=== PATIENT | male | born 1965 | race Hispanic/Latino ===

== ENCOUNTER 2022-09-11 01:09 | Emergency (ER) | payer OTHER ==
[~2022-09-11] VITALS: Ht 170.2 cm; Wt 74.8 kg
[2022-09-11] MEDS ORDERED: KETOROLAC TROMETHAMINE 60 MG/2 ML VIAL IM STA (01:18)
[2022-09-11] MEDS ORDERED: KETOROLAC TROMETHAMINE 60 MG/2 ML VIAL ONE (01:42)
[2022-09-11] MEDS ORDERED: KETOROLAC TROME10 MG PO (02:55)
[2022-09-11] MEDS ORDERED: ONDANSETRON ODT4 MG PO (02:55)
== END 2022-09-11 05:09 | disposition home or self-care (01) ==
LOC: FSED 01:12
DX: N50.811 Right testicular pain (principal); N20.2 Calculus of kidney with calculus of ureter; R10.30 Lower abdominal pain, unspecified; Q53.9 Undescended testicle, unspecified; I10 Essential (primary) hypertension
CPT/HCPCS: 74176; 76870; 99283; J1885